=== PATIENT | female | born 1980 | race African-American/Black ===

== ENCOUNTER 2023-01-23 14:03 | Observation (INO) | payer SELFPAY ==
[~2023-01-23] VITALS: Ht 189.2 cm; Wt 78.5 kg
[2023-01-23] MEDS ORDERED: LACTATED RINGERS 1,000 ML IV SCH (14:15)
== END 2023-01-23 16:30 | disposition home or self-care (01) ==
LOC: 8 EST LDRP 14:03
PROVIDERS: ADMIT Obstetrics & Gynecology; ATTEND Obstetrics & Gynecology
DX: O26.893 Other specified pregnancy related conditions, third trimester (principal); R42 Dizziness and giddiness; Z3A.31 31 weeks gestation of pregnancy
CPT/HCPCS: 59025; 82962; 76818; 76805; G0378 ×2; 96360; 96361; 99281; J7120; G0379